=== PATIENT | female | born 1975 | race Caucasian/White ===

== ENCOUNTER 2023-06-15 20:05 | Emergency (ER) | payer OTHER, SELFPAY ==
[2023-06-15] VITALS (17 sets, daily range): BP systolic 111–152; BP diastolic 61–88; PULSE 61–83; RESP 10–23; TEMP 37.1; O2SAT 89–100; BMI 26.6
--- NOTE | 2023-06-15 20:14 | XR_ITS ---
Patient: DREA NUÑEZ Facility:?[facility] Patient ID:?[id number] Site Patient ID:?[id number]. Site :?1975 Study:?XRay-Extremity Right ANKLE 3V-06/15/2023 8:29:22 PM Ordering Physician:JULIAN Final Report: INDICATION: Pain. TECHNIQUE: Three views of the right ankle. FINDINGS: Fracture dislocation of the right ankle. The tibiotalar joint space is clearly disrupted, and widened medially and anteriorly. Acute complete displaced fracture deformity of the distal right fibula with overriding/displacement across the fracture. A posterior malleolar fracture is suspect but not optimally visualized. Soft tissue swelling. IMPRESSION: Acute fracture dislocation right ankle. Orthopedic consultation is warranted. Dictated by Bishnu Foy MD @ 06/15/2023 8:56:05 PM Signed by:?Bishnu Foy MD @06/15/2023 8:56:05 PM (Electronic Signature)
[2023-06-15] MEDS: fentaNYL 100 MCG/2 ML inj 50 MCG IVP (20:57)
[2023-06-15] MEDS: 0.9 % SODIUM CHLORIDE 1000 ml 1,000 ML IV (21:05)
[2023-06-15] MEDS: PROPOFOL 10 MG/ML INJ 200 MG IVP (21:11)
--- NOTE | 2023-06-15 21:15 | XR_ITS ---
Patient: DREA NUÑEZ Facility:?[facility] Patient ID:?[id number] Site Patient ID:?[id number]. Site :?1975 Study:?XRay-Extremity Right ANKLE 3V-06/15/2023 9:23:06 PM Ordering Physician:JULIAN Final Report: INDICATION: Fracture dislocation of the right ankle. Closed reduction. TECHNIQUE: Single view of the right ankle. COMPARISON: Pre reduction images from the same date. FINDINGS: There is better alignment across the distal right fibular fracture. The tibiotalar joint space is clearly significantly widened. Persistent soft tissue swelling. IMPRESSION: Better apposition across the tibiotalar joint space and distal fibular fracture. Dictated by Bishnu Foy MD @ 06/15/2023 9:32:23 PM Signed by:?Bishnu Foy MD @06/15/2023 9:32:23 PM (Electronic Signature)
--- NOTE | 2023-06-15 21:18 | XR_ITS ---
Patient: DREA NUÑEZ Facility:?[facility] Patient ID:?[id number] Site Patient ID:?[id number]. Site :?1975 Study:?XRay-Extremity Right ANKLE 3V-06/15/2023 9:33:40 PM Ordering Physician:JULIAN Final Report: INDICATION: Postreduction. Recheck. Cast application. TECHNIQUE: Three views of the right ankle. COMPARISON: X-rays of the right ankle performed earlier on the same date. FINDINGS: Better apposition across the tibiotalar joint space. Persistent oblique slightly overriding fracture of the distal right fibula with slightly better apposition. Overlying cast obscures skeletal detail. IMPRESSION: Clearly improved alignment of the tibiotalar joint space and across the distal right fibular fracture. Dictated by Bishnu Foy MD @ 06/15/2023 9:43:01 PM Signed by:?Bishnu Foy MD @06/15/2023 9:43:01 PM (Electronic Signature)
--- NOTE | 2023-06-15 21:30 | ED_ITS ---
HPI - Extremity Injury (Lower) General Date Seen: 06/15/23 <Cristian Rodriguez - Last Filed: 06/15/23 22:18> Chief Complaint: Extremity Pain/Injury, Lower <Cristian Rodriguez DO - Last Filed: 06/15/23 22:18> Stated Complaint: Fall, R ankle injury <Cristian Rodriguez DO - Last Filed: 06/15/23 22:18> Time Seen by Provider: 06/15/23 20:06 <Cristian Rodriguez DO - Last Filed: 06/15/23 22:18> Source: patient <Cristian Rodriguez - Last Filed: 06/15/23 22:18> Mode of arrival: wheelchair <Cristian Rodriguez - Last Filed: 06/15/23 22:18> Limitations: no limitations <Cristian Rodriguez DO - Last Filed: 06/15/23 22:18> History of Present Illness HPI Narrative: Patient is a 48-year-old female with a previous hemorrhagic stroke with residual right-sided weakness presenting to the emergency department for right ankle pain. She states shortly prior to arrival she was getting into the shower when she tripped and fell hurting her right ankle. States the pain is a 10/10 at this time. States she ate about an hour prior to the injury. Denies injuring this ankle in the past. Denies any numbness at this time. Is not on any blood thinners. Denies hitting her head. No other concerns noted <Cristian Rodriguez - Last Filed: 06/15/23 22:18> Related Data Home Medications: Home Medications Medication Instructions Recorded Confirmed levetiracetam 1,000 mg tablet 1,000 mg PO BID 06/15/23 06/15/23 (Keppra) phenytoin sodium extended PO 06/15/23 sertraline .ROUTE 06/15/23 <Cristian Rodriguez DO - Last Filed: 06/15/23 22:18> Allergies/Adverse Reactions: Allergies Allergy/AdvReac Type Severity Reaction Status Date / Time NSAIDS (Non-Steroidal AdvReac Intermediate Verified 06/15/23 20:19 Anti-Inflamma <Cristian Rodriguez DO - Last Filed: 03/07/24 22:18> Review of Systems Narrative: Pertinent systems reviewed and were negative unless stated in the HPI <Cristian Rodriguez DO - Last Filed: 06/15/23 22:18> Exam Narrative: Exam Narrative: Const: Well-nourished, Well-developed, in moderate distress Eyes: PERRL, no conjunctival injection, and symmetrical lids HENT: Atraumatic external nose and ears. Moist mucous membranes. CV: Dorsalis pedis pulse normal bilaterally, cap refills less than 2 seconds bilaterally lower extremities MSK: Swelling and tenderness noted to the right ankle, worse lateral than medial, no midfoot pain, no knee pain Skin: Warm, Dry. No rashes or lesions. Neuro: Normal Muscle tone, No focal neurological deficits. Psych: Awake, Alert, & Oriented x3. Appropriate mood and affect. <Cristian Rodriguez, - Last Filed: 06/15/23 22:18> Const: Vital Signs, click to edit/add: Vital Signs - 24 hr 06/15/23 20:16 06/15/23 20:36 06/15/23 20:37 Temperature 98.8 F Pulse Rate 83 82 Pulse Rate [Pulse Oximeter] 81 Respiratory Rate 16 Blood Pressure 126/80 Blood Pressure [Ri ght Upper Arm] 142/86 H Pulse Oximetry 100 100 99 Oxygen Delivery Me thod Room Air Oxygen Flow Rate 06/15/23 20:45 06/15/23 21:00 06/15/23 21:02 Temperature Pulse Rate 83 78 81 Pulse Rate [Pulse Oximeter] Respiratory Rate 15 21 10 L Blood Pressure 139/79 Blood Pressure [Ri ght Upper Arm] Pulse Oximetry 100 99 99 Oxygen Delivery Me thod Oxygen Flow Rate 06/15/23 21:06 06/15/23 21:07 06/15/23 21:12 Temperature Pulse Rate 77 80 78 Pulse Rate [Pulse Oximeter] Respiratory Rate 10 L 15 10 L Blood Pressure 152/82 H 144/86 H 141/88 H Blood Pressure [Ri ght Upper Arm] Pulse Oximetry 89 99 100 Oxygen Delivery Me thod Oxygen Flow Rate 06/15/23 21:15 06/15/23 21:17 06/15/23 21:22 Temperature Pulse Rate 61 62 Pulse Rate [Pulse Oximeter] Respiratory Rate 10 L 13 13 Blood Pressure 111/61 119/73 Blood Pressure [Ri ght Upper Arm] Pulse Oximetry 95 98 Oxygen Delivery Me thod Nasal Cannula Nasal Cannula Oxygen Flow Rate 1 1 06/15/23 21:27 06/15/23 21:30 06/15/23 21:32 Temperature Pulse Rate 66 62 66 Pulse Rate [Pulse Oximeter] Respiratory Rate 23 19 15 Blood Pressure 126/79 121/78 Blood Pressure [Ri ght Upper Arm] Pulse Oximetry 100 99 99 Oxygen Delivery Me thod Nasal Cannula Nasal Cannula Nasal Cannula Oxygen Flow Rate 1 1 1 06/15/23 21:37 06/15/23 21:45 Temperature Pulse Rate 65 69 Pulse Rate [Pulse Oximeter] Respiratory Rate Blood Pressure 127/78 Blood Pressure [Ri ght Upper Arm] Pulse Oximetry 99 95 Oxygen Delivery Me thod Oxygen Flow Rate <Cristian Rodriguez, DO - Last Filed: 06/15/23 22:18> Vital Signs, click to edit/add: Vital Signs - 24 hr 06/15/23 20:16 06/15/23 20:36 06/15/23 20:37 Temperature 98.8 F Pulse Rate 83 82 Pulse Rate [Pulse Oximeter] 81 Respiratory Rate 16 Blood Pressure 126/80 Blood Pressure [Ri ght Upper Arm] 142/86 H Pulse Oximetry 100 100 99 Oxygen Delivery Me thod Room Air Oxygen Flow Rate 06/15/23 20:45 06/15/23 21:00 06/15/23 21:02 Temperature Pulse Rate 83 78 81 Pulse Rate [Pulse Oximeter] Respiratory Rate 15 21 10 L Blood Pressure 139/79 Blood Pressure [Ri ght Upper Arm] Pulse Oximetry 100 99 99 Oxygen Delivery Me thod Oxygen Flow Rate 06/15/23 21:06 06/15/23 21:07 06/15/23 21:12 Temperature Pulse Rate 77 80 78 Pulse Rate [Pulse Oximeter] Respiratory Rate 10 L 15 10 L Blood Pressure 152/82 H 144/86 H 141/88 H Blood Pressure [Ri ght Upper Arm] Pulse Oximetry 89 99 100 Oxygen Delivery Me thod Oxygen Flow Rate 06/15/23 21:15 06/15/23 21:17 06/15/23 21:22 Temperature Pulse Rate 61 62 Pulse Rate [Pulse Oximeter] Respiratory Rate 10 L 13 13 Blood Pressure 111/61 119/73 Blood Pressure [Ri ght Upper Arm] Pulse Oximetry 95 98 Oxygen Delivery Me thod Nasal Cannula Nasal Cannula Oxygen Flow Rate 1 1 03/07/24 21:27 06/15/23 21:30 06/15/23 21:32 Temperature Pulse Rate 66 62 66 Pulse Rate [Pulse Oximeter] Respiratory Rate 23 19 15 Blood Pressure 126/79 121/78 Blood Pressure [Ri ght Upper Arm] Pulse Oximetry 100 99 99 Oxygen Delivery Me thod Nasal Cannula Nasal Cannula Nasal Cannula Oxygen Flow Rate 1 1 1 06/15/23 21:37 06/15/23 21:45 Temperature Pulse Rate 65 69 Pulse Rate [Pulse Oximeter] Respiratory Rate Blood Pressure 127/78 Blood Pressure [Ri ght Upper Arm] Pulse Oximetry 99 95 Oxygen Delivery Me thod Oxygen Flow Rate <Mikey Morel MD - Last Filed: 06/15/23 21:33> Course Vital Signs Vital signs: Initial Vital Signs Temperature 98.8 F 06/15/23 20:16 Temperature Source Temporal Artery Scan 06/15/23 20:16 Pulse Rate 81 06/15/23 20:16 Respiratory Rate 16 06/15/23 20:16 Blood Pressure 142/86 H 06/15/23 20:16 Blood Pressure Mean 104 06/15/23 20:16 Blood Pressure Position Supine 06/15/23 20:16 Pulse Oximetry 100 06/15/23 20:16 Oxygen Delivery Method Room Air 06/15/23 20:16 Vital Signs Temperature 98.8 F 06/15/23 20:16 Pulse Rate 81 06/15/23 20:16 Respiratory Rate 16 06/15/23 20:16 Blood Pressure 142/86 H 06/15/23 20:16 Pulse Oximetry 100 06/15/23 20:16 Oxygen Delivery Method Room Air 06/15/23 20:16 Temperature 98.8 F 06/15/23 20:16 Pulse Rate 69 06/15/23 21:45 Respiratory Rate 15 06/15/23 21:32 Blood Pressure 127/78 06/15/23 21:37 Pulse Oximetry 95 06/15/23 21:45 Oxygen Delivery Method Nasal Cannula 06/15/23 21:32 Oxygen Flow Rate 1 06/15/23 21:32 <Cristian Rodriguez DO - Last Filed: 06/15/23 22:18> Initial Vital Signs Temperature 98.8 F 06/15/23 20:16 Temperature Source Temporal Artery Scan 06/15/23 20:16 Pulse Rate 81 06/15/23 20:16 Respiratory Rate 16 06/15/23 20:16 Blood Pressure 142/86 H 06/15/23 20:16 Blood Pressure Mean 104 06/15/23 20:16 Blood Pressure Position Supine 06/15/23 20:16 Pulse Oximetry 100 06/15/23 20:16 Oxygen Delivery Method Room Air 06/15/23 20:16 Vital Signs Temperature 98.8 F 06/15/23 20:16 Pulse Rate 81 06/15/23 20:16 Respiratory Rate 16 06/15/23 20:16 Blood Pressure 142/86 H 06/15/23 20:16 Pulse Oximetry 100 06/15/23 20:16 Oxygen Delivery Method Room Air 06/15/23 20:16 Temperature 98.8 F 06/15/23 20:16 Pulse Rate 69 06/15/23 21:45 Respiratory Rate 15 06/15/23 21:32 Blood Pressure 127/78 06/15/23 21:37 Pulse Oximetry 95 06/15/23 21:45 Oxygen Delivery Method Nasal Cannula 06/15/23 21:32 Oxygen Flow Rate 1 06/15/23 21:32 <Mikey Morel MD - Last Filed: 06/15/23 21:33> Medications Administered Medications: Generic Name Dose Route Start Last Admin Trade Name Freq PRN Reason Stop Dose Admin Sodium Chloride 1,000 mls @ 1,000 mls/hr 06/15/23 22:00 06/15/23 22:01 0.9 % Sodium Chloride 1000 Ml IV 06/15/23 22:59 Infused .Q1H ABBIE Infusion Discontinued Medications Generic Name Dose Route Start Last Admin Trade Name Freq PRN Reason Stop Dose Admin Fentanyl 50 mcg 06/15/23 20:40 06/15/23 20:57 Fentanyl 100 Mcg/2 Ml Inj IVP 06/15/23 20:41 50 mcg ONCE ONE Administration Propofol 200 mg 06/15/23 20:40 06/15/23 21:11 Propofol 10 Mg/Ml Inj IVP 06/15/23 20:41 180 mg ONCE ONE Administration <Cristian Rodriguez DO - Last Filed: 06/15/23 22:18> Generic Name Dose Route Start Last Admin Trade Name Freq PRN Reason Stop Dose Admin Sodium Chloride 1,000 mls @ 1,000 mls/hr 06/15/23 22:00 06/15/23 22:01 0.9 % Sodium Chloride 1000 Ml IV 06/15/23 22:59 Infused .Q1H ABBIE Infusion Discontinued Medications Generic Name Dose Route Start Last Admin Trade Name Leanna PRN Reason Stop Dose Admin Fentanyl 50 mcg 06/15/23 20:40 06/15/23 20:57 Fentanyl 100 Mcg/2 Ml Inj IVP 06/15/23 20:41 50 mcg ONCE ONE Administration Propofol 200 mg 06/15/23 20:40 06/15/23 21:11 Propofol 10 Mg/Ml Inj IVP 06/15/23 20:41 180 mg ONCE ONE Administration <Mikey Morel MD - Last Filed: 06/15/23 21:33> MDM - Extremity Injury (Lower) MDM Narrative Medical decision making narrative: Patient's for 48-year-old female presenting for ankle pain. There is concern for a fracture at this time so x-rays were ordered. X-ray showed a displaced distal fibula fracture along with a possible posterior malleolar fracture. There is a widened mortise. I spoke to Orthopedics in a recommend reducing the fracture and placed in a splint with follow-up in their clinic. States they would not do surgery over the next few days due to the amount of swelling that will occur. No signs of an open fracture at this time Reduction was performed by myself or Dr. Morel use propofol for sedation. She tolerated this procedure well. Before we put the splint on we did get an AP view that showed better up for approximate is a you of the tibia fibular joint and distal fibular fracture. A final post reduction x-rays were done after a posterior short leg and stirrup splint were placed. This shows clearly improved alignment of the tibiotalar joint and the distal right fibular fracture. Patient is doing well at this time he feels safe for discharge. She has not think she will do well as crutches but does have a knee scooter at home for mobility. Will be given oxycodone to instymeds. She is agreeable to this plan. <Cristian Rodriguez DO - Last Filed: 06/15/23 22:18> Imaging Data Initial ankle x-ray: Attestation: I have reviewed the pertinent imaging results. <Cristian Rodriguez DO - Last Filed: 06/15/23 22:18> Radiologist's impression: Fracture dislocation of the right ankle. The tibiotalar joint space is clearly disrupted, and widened medially and anteriorly. Acute complete displaced fracture deformity of the distal right fibula with overriding/displacement across the fracture. A posterior malleolar fracture is suspect but not optimally visualized. Soft tissue swelling. IMPRESSION: Acute fracture dislocation right ankle. Orthopedic consultation is warranted. Dictated by Bishnu Foy MD @ 06/15/2023 8:56:05 PM (Electronic Signature) <Cristian Rodriguez DO - Last Filed: 06/15/23 22:18> Mid reduction x-ray: Attestation: I have reviewed the pertinent imaging results. <Cristian Rodriguez DO - Last Filed: 06/15/23 22:18> Radiologist's impression: There is better alignment across the distal right fibular fracture. The tibiotalar joint space is clearly significantly widened. Persistent soft tissue swelling. IMPRESSION: Better apposition across the tibiotalar joint space and distal fibular fracture. Dictated by Bishnu Foy MD @ 06/15/2023 9:32:23 PM <Cristian Rodriguez DO - Last Filed: 06/15/23 22:18> Post reduction ankle x-ray: Radiologist's impression: Better apposition across the tibiotalar joint space. Persistent oblique slightly overriding fracture of the distal right fibula with slightly better apposition. Overlying cast obscures skeletal detail. IMPRESSION: Clearly improved alignment of the tibiotalar joint space and across the distal right fibular fracture. Dictated by Bishnu Foy MD @ 06/15/2023 9:43:01 PM <Cristian Rodriguez DO - Last Filed: 06/15/23 22:18> Discharge Plan Discharge Clinical Impression: Ankle fracture Qualifiers: Encounter type: initial encounter Fracture type: closed Laterality: right Qualified Code(s): S82.891A - Other fracture of right lower leg, initial encounter for closed fracture <Cristian Rodriguez DO - Last Filed: 06/15/23 22:18> Patient Disposition: Home, Self-Care <Cristian Rodriguez DO - Last Filed: 06/15/23 22:18> Condition: Improved <Cristian Rodriguez DO - Last Filed: 06/15/23 22:18> Instructions: Ankle Fracture (DC) <Cristian Rodriguez DO - Last Filed: 06/15/23 22:18> Additional Instructions: Take Tylenol and ibuprofen for pain. If that is not helping use the oxycodone. Of note the oxycodone can make you having increased fall risk so be careful. Do not put any weight on that right ankle. Call the orthopedic clinic tomorrow to schedule an appointment. Informed them you were in the ED today for an ankle fracture. The number is [phone] <Cristian Rodriguez DO - Last Filed: 06/15/23 22:18> Prescriptions: No Action levetiracetam [Keppra] 1,000 mg tablet 1,000 mg PO BID phenytoin sodium extended [Dilantin Extended] PO sertraline [Zoloft] .ROUTE <Cristian Rodriguez DO - Last Filed: 06/15/23 22:18> Follow Up/Referrals: Provider,Not a Local [Primary Care Provider] - <Cristian Rodriguez DO - Last Filed: 06/15/23 22:18> Stand Alone Forms: [employer] Info Instructions <Cristian Rodriguez - Last Filed: 06/15/23 22:18> Procedures Orthopedic Fracture Reduction Right ankle: Written consent by: patient <Cristian Rodriguez DO - Last Filed: 06/15/23 22:18> Time Out Performed: Yes <Cristian Rodriguez DO - Last Filed: 06/15/23 22:18> Side: right <Cristian Rodriguez DO - Last Filed: 06/15/23 22:18> Fracture location: ankle <Cristian Rodriguez DO - Last Filed: 06/15/23 22:18> Analgesia: procedural sedation <Cristian Rodriguez DO - Last Filed: 06/15/23 22:18> Technique: direct manipulation <Cristian Rodriguez DO - Last Filed: 06/15/23 22:18> Post Reduction X-rays Demonstrate: acceptable reduction <Cristian Rodriguez DO - Last Filed: 06/15/23 22:18> Post-reduction neuro exam: intact <Cristian Rodriguez DO - Last Filed: 06/15/23 22:18> Post-reduction vascular exam: intact <Cristian Rodriguez DO - Last Filed: 06/15/23 22:18> Splint Applied: Yes <Cristian Rodriguez DO - Last Filed: 06/15/23 22:18> Patient Tolerated Procedure: well <Cristian Rodriguez DO - Last Filed: 06/15/23 22:18> Procedural Sedation Pre procedure diagnosis: Right ankle fracture/dislocation <Mikey Morel MD - Last Filed: 06/15/23 21:33> Written consent by: patient <Mikey Morel MD - Last Filed: 06/15/23 21:33> Verification/time out: correct patient, correct site, correct procedure and time out performed <Mikey Morel MD - Last Filed: 06/15/23 21:33> Assistants, if any: Reduction performed by Dr. Rodriguez. <Mikey Morel MD - Last Filed: 06/15/23 21:33> Assistants, if any: Sedation performed by Dr. Morel. <Mikey Morel MD - Last Filed: 06/15/23 21:33> Indication: fracture/dislocation reduction <Mikey Morel MD - Last Filed: 06/15/23 21:33> ASA Class: II <Mikey Morel MD - Last Filed: 06/15/23 21:33> Time of Last PO Intake: 18:00 <Mikey Morel MD - Last Filed: 06/15/23 21:33> Mallampati classification: I. soft palate, fauces, uvula, pillars visible <Mikey Morel MD - Last Filed: 06/15/23 21:33> Preparation: property assessment monitor applied, pulse oximeter, capnometry used, supplemental O2 applied, reversal agents at bedside, suction/airway equipment at bedside and IV secured <Mikey Morel MD - Last Filed: 06/15/23 21:33> IV Propofol dose (mg): 180 (80 mg, 40 mg, 60 mg-3 total doses) <Mikey Morel MD - Last Filed: 06/15/23 21:33> Complications: none <Mikey Morel MD - Last Filed: 06/15/23 21:33> Additional Comments: Patient tolerated sedation well. No apnea, desaturation, aspiration, hypoxia. Total anesthesia time about [address] Rodriguez is a note for the remainder of the history and physical. <Mikey Morel MD - Last Filed: 06/15/23 21:33>
== END 2023-06-15 22:39 | disposition home or self-care (01) ==
PROVIDERS: Emergency Provider Student in an Organized Health Care Education/Training Program
DX: S82.61XA Displaced fracture of lateral malleolus of right fibula, initial encounter for closed fracture (principal); W01.0XXA Fall on same level from slipping, tripping and stumbling without subsequent striking against object, initial encounter
CPT/HCPCS: 27788; 73600; 73610; 96374; 99156; 99283; 99284; J2704; J3010; J7030

== ENCOUNTER 2023-06-28 10:27 | Day surgery (SDC) | payer OTHER, SELFPAY ==
[2023-06-28] VITALS (11 sets, daily range): BP systolic 111–129; BP diastolic 68–93; PULSE 54–71; RESP 14–16; TEMP 36.1–36.9; O2SAT 95–100; BMI 28.1
[2023-06-28 10:58] LABS: Ur HCG Qualitative* Negative (Negative)
--- NOTE | 2023-06-28 11:06 | W.PM.H&PU ---
History & Physical Update History & Physical Update H&P Reviewed and patient assessed: No changes noted
--- NOTE | 2023-06-28 11:08 | P.ORPRC_ITS ---
Procedure Note Date of procedure: 06/28/23 Procedure: PREOPERATIVE DIAGNOSES: 1. Right ankle lateral malleolus fracture (with bimalleolar equivalent) - unstable on stress imaging 2. Right ankle posterior malleolus fracture POSTOPERATIVE DIAGNOSES: 1. Right ankle lateral malleolus fracture 2. Right ankle posterior malleolus fracture PROCEDURE: 1. Right ankle lateral malleolus open reduction with internal fixation. 2. Intraoperative fluoroscopy <53 minutes (CPT CODE 7600) SURGEON: Deep Campos MD FLYER MAKER: Joya Markham P.A.-C.; An medical assistant per diem was critical for this case to aide in patient positioning, leg manipulation, tissue retraction, closure, and splinting. ANESTHESIA: Spinal plus popliteal nerve block IMPLANTS: Arthrex distal fibular locking plate with 2.7 distal locking and 3.5mm proximal nonlocking screws. TOURNIQUET: 54 minutes at 250 mmHg. INDICATIONS: The patient is a pleasant 48-year-old female who sustained a right/left ankle injury in the recent past with difficulty bearing weight. Workup included x-rays which revealed an unstable ankle fracture. Given these findings, surgery was recommended to stablize the ankle and allow for anatomic healing. FINDINGS: Closed, displaced lateral malleolus ankle fracture with a bimalleola r equivalent; intact syndesmosis. Small, mildly displaced posterior malleolus fracture, which was anatomically reduced after distal fibula fixation. PROCEDURE: Following a thorough discussion of risks, benefits, and alternatives, consent was obtained and the operative extremity was marked. A regional nerve block was performed by anesthesia staff. The patient was brought to the operating room and placed supine on the operating table. Induction of anesthesia was undertaken. Surgical time out was performed confirming patient identity, surgical site, and procedure. IV Ancef was administered preoperatively for prophylaxis. The right lower extremity was prepped and draped in the appropriate sterile fashion. The operative extremity was elevated and exsanguinated, and the tourniquet inflated to 250 mmHg. A longitudinal incision was made overlying the distal fibula. Sharp incision was carried through skin and subcutaneous tissue, while protecting any crossing neurologic structures. The fracture was identified, and cleared of interposed periosteum and fracture hematoma. The surgical site was thoroughly irrigated with normal saline. The fracture was reduced and temporarily held with reduction clamps. And Arthrex distal fibular locking plate was selected the fin on the lateral aspect of the distal fibula. Correct plate length and position were confirmed by fluoroscopic imaging and plate was secured with a BB Wilfredo. Plate was then fixed distally with 2.7 mm locking screws and a 3.5 mm bicortical nonlocking screw proximally. After all the distal locking holes had been filled, 2 additional nonlocking 3.5 mm screws were placed proximally. Final fluoroscopic images were obtained which showed anatomic reduction of the distal fibula. Locking plate was well positioned and screw lengths were appropriate. An external rotation stress view showed no widening of the syndesmosis. However, there was noted to be some generalized laxity of the ankle joint medially and laterally. At this stage, the wound was thoroughly irrigated with normal saline. Deep subcutaenous tissues were closed over the plate with 2-0 Vicryl. The tourniquet was deflated. Total tourniquet time was 54 minutes. Hemostasis achieved with electrocautery. Subcutaneous tissues were closed with 2-0 Vicryl for the subcutaneous tissues, and skin was closed with 3-0 nylon. Sterile dressing were applied, followed by a Glenroy Chau splint. The patient was awoken from anesthesia and transferred to the PACU in stable condition. PLAN: 1. Ice and elevate operative extremity. 2. Keep splint clean and dry 3. Tylenol and oxycodone for pain as needed. 4. Toe touch weight-bearing operative extremity. 5. Discharge home. 6. Follow up with PA in orthopedic clinic in 10-14 days for splint removal and wound check.
[2023-06-28] MEDS: SCOPOLAMINE 1 MG/3 DAY PATCH 1 PATCH TRANSDERMA (11:30)
--- NOTE | 2023-06-28 11:30 | XR_ITS ---
Patient: DREA NUÑEZ Facility:?[facility] Patient ID:?[id number] Site Patient ID:?[id number]. Site :?1975 Study:?XRay-Extremity Right 2 ANKLE-06/28/2023 2:04:27 PM Ordering Physician:?DR. JAIN Final Report: Indication: ORIF right ankle Technique: Seven fluoroscopic images of the right ankle. Fluoroscopic time of 14.8 seconds. IMPRESSION: Fluoroscopic guidance for ORIF distal fibular fracture. Widening of the lateral tibiotalar joint with stress maneuver. Dictated by Thomas Gilliam MD @ 06/29/2023 8:58:56 AM Signed by:?Thomas Gilliam MD @06/29/2023 8:58:56 AM (Electronic Signature)
[2023-06-28] MEDS: SODIUM CHLORIDE 0.9 % (FLUSH) 10 ML SYRINGE IVF (11:34)
[2023-06-28] MEDS: LACTATED RINGERS 1000 ML 1,000 ML 100 ML IV (11:34)
[2023-06-28] MEDS: fentaNYL 100 MCG/2 ML inj IVP (11:53)
[2023-06-28] MEDS: MIDAZOLAM HCL 1 MG/ML inj IVP (11:56)
--- NOTE | 2023-06-28 12:01 | SUR.PREOP ---
TIME?OUT:?1053 PT/RN/MDA?VERIFICATION?OF?SURGICAL?SITE,?PROCEDURE,?AND?CONSENT OBTAINED?PRIOR?TO?INVASIVE?PROCEDURE.
--- NOTE | 2023-06-28 12:06 | SUR.PREOP ---
TIME?OUT:?CORRECTION 1153 PT/RN/MDA?VERIFICATION?OF?SURGICAL?SITE,?PROCEDURE,?AND?CONSENT OBTAINED?PRIOR?TO?INVASIVE?PROCEDURE.
--- NOTE | 2023-06-28 12:27 | P.NB_ITS ---
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 Images saved: Yes Medications given in 5ml increments after negative aspiration: Ropivicaine %: 0.5 mL: 20 Needle gauge: 22 Patient tolerated procedure well: Yes Additional comments: Needle noted adjacent to nerve Block Charges Block Charge (with Pro Fee): Sciatic Nerve Use of Ultrasound Machine for Block: Yes- US Guidance/pain block
[2023-06-28] MEDS: CEFAZOLIN 2 GM INJ IVP (12:46)
--- NOTE | 2023-06-28 13:00 | SUR.OPER ---
PATIENT QUESTIONS ANSWERED SATISFACTORILY PREOPERATIVELY.? PATIENT BROUGHT TO OR #3 PER CART AFTER ADMINISTRATION OF A BLOCK.? Patient positioned supine on OR #3 bed.? The perioperative?team supported arms bilaterally on arm boards.? Final approval of positioning by surgeon.?
--- NOTE | 2023-06-28 13:55 | W.ANESCHARGE ---
Anesthesia Charges Start Date/Time Anesthesia Start Date: 06/28/23 Anesthesia Start Time: 12:34 Stop Date/Time Anesthesia Stop Date: 06/28/23 Anesthesia Stop Time: 14:28
--- NOTE | 2023-06-28 14:06 | W.ANESCHARGE ---
Anesthesia Charges Start Date/Time Anesthesia Start Date: 06/28/23 Anesthesia Start Time: 12:34 Stop Date/Time Anesthesia Stop Date: 06/28/23 Anesthesia Stop Time: 14:28
== END 2023-06-28 15:59 | disposition home or self-care (01) ==
PROVIDERS: Anesthesiology; Visit Provider Orthopaedic Surgery
PROC: (CPT 27792; principal; 2023-06-28 11:30)
DX: S82.841A Displaced bimalleolar fracture of right lower leg, initial encounter for closed fracture (principal); G89.18 Other acute postprocedural pain
CPT/HCPCS: 27792; 01470; 01480; 64445; 73600; 76000; 76942; 81025; A4580; A9270; C1713; J0690; J2250; J2704; J2795; J3010; J7120

== ENCOUNTER 2023-07-13 12:54 | Outpatient (CLI) | payer OTHER, SELFPAY ==
--- NOTE | 2023-07-13 13:00 | US_ITS ---
Patient: DREA NUÑEZ Facility:?[facility] Patient ID:?[id number] Site Patient ID:?[id number]. Site :?[id number] Study:?US-Extremity Right LEV-07/13/2023 1:26:26 PM Ordering Physician:JM GO Final Report: INDICATION: Leg pain and swelling. TECHNIQUE: Ultrasound venous duplex lower right extremity. Compression venous exam was performed using meza-scale, color Doppler, and spectral Doppler analysis. COMPARISON: None. FINDINGS: Deep veins: Sonographic imaging demonstrates the right common femoral, deep femoral, superficial femoral, popliteal, posterior tibial and the contralateral right common femoral veins to be fully compressible with normal color Doppler blood flow. Superficial veins: Greater saphenous vein is fully compressible. No popliteal cyst. IMPRESSION: Normal right lower extremity venous ultrasound, no sign of deep venous thrombosis. Dictated by Nolberto Gallagher MD @ 07/13/2023 1:30:38 PM Signed by:?Nolberto Gallagher MD @07/13/2023 1:30:38 PM (Electronic Signature)
== END 2023-07-13 12:55 | disposition home or self-care (01) ==
LOC: US 12:55
PROVIDERS: Visit Provider Physician Assistant Surgical
DX: M79.604 Pain in right leg (principal); R22.41 Localized swelling, mass and lump, right lower limb
CPT/HCPCS: 93971